=== PATIENT | female | born 1985 | race Caucasian/White ===

== ENCOUNTER 2018-05-07 11:11 | Emergency (ER) | payer OTHER ==
[2018-05-07 11:57] VITALS: BP 124/67; PULSE 83; TEMP 97.7; BMI 30.9
--- NOTE | 2018-05-07 12:47 | PDOC ---
History of Present Illness - General Chief Complaint: Injury Stated Complaint: INJURY/WORK Time Seen by Provider: 05/07/18 12:24 - History of Present Illness Initial Comments: 05/07/18 12:45 33-year-old female with a past medical history significant for lupus, she takes methocarbamol, Plaquenil, and gabapentin presents for evaluation of left elbow and wrist pain. 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 No prior problems with the elbow and wrist Past History - Past Medical History Allergies/Adverse Reactions: Allergies Allergy/AdvReac Type Severity Reaction Status Date / Time strawberry Allergy Severe Rash Verified 05/07/18 11:54 Home Medications: Ambulatory Orders NK [No Known Home Medication] 05/07/18 COPD: No - Immunization History Immunization Up to Date: Yes - Suicide/Smoking/Psychosocial Hx Smoking History: Never smoked Hx Alcohol Use: No Drug/Substance Use Hx: No Review of Systems - Review of Systems Musculoskeletal: Yes: Joint Pain *Physical Exam - Vital Signs Last Vital Signs Temp Pulse Resp BP Pulse Ox 97.7 F 83 18 124/67 99 05/07/18 11:54 05/07/18 11:54 05/07/18 11:54 05/07/18 11:54 05/07/18 11:54 - Physical Exam Comments: 05/07/18 12:46 There is full range of motion of the cervical spine and shoulders. Without discomfort. Left elbow full flexion and extension without discomfort. There is pain with supination at terminal ranges of supination and pronation. Tenderness about the radial head. Mild discomfort about the forearm. Mild swelling about the dorsum of the wrist. Diffuse tenderness about the wrist which is nonspecific and decreased range of motion. No SBT She has no gross sensorimotor deficits. She is neurovascularly intact. 05/07/18 13:17 Moderate Sedation - Procedure Monitoring Vital Signs: Procedure Monitoring Vital Signs Temperature 97.7 F 05/07/18 11:54 Pulse Rate 83 05/07/18 11:54 Respiratory Rate 18 05/07/18 11:54 Blood Pressure 124/67 05/07/18 11:54 O2 Sat by Pulse Oximetry (%) 99 05/07/18 11:54 ED Treatment Course - RADIOLOGY Radiology Studies Ordered: Category Date Time Status ELBOW-LEFT [RAD] Stat Radiology 05/07/18 12:45 Ordered WRIST-LEFT [RAD] Stat Radiology 05/07/18 12:45 Ordered Medical Decision Making - Medical Decision Making 05/07/18 13:20 x-rays elbow qand wrist NAD *DC/Admit/Observation/Transfer Diagnosis at time of Disposition: Wrist sprain - Discharge Dispostion Disposition: HOME Condition at time of disposition: Stable Decision to Admit order: No - Referrals Referrals: Misha Jaramillo MD [Staff Physician] - - Patient Instructions Printed Discharge Instructions: Wrist Sprain, DI for Wrist Sprain Additional Instructions: Please wear the wrist splint as directed he may remove it for hygiene and sleep. Return to the emergency room should symptoms worsen or go unresolved and follow-up with upper extremity surgeon in one to 2 days for further evaluation and treatment options. He may take Tylenol and Motrin for pain as directed. - Post Discharge Activity
[2018-05-07] MEDS ORDERED: ACETAMINOPHEN 500 MG TABLET (FP) PO ONE (13:05)
[2018-05-07] MEDS ORDERED: ACETAMINOPHEN 500 MG TABLET (FP) ONE (13:09)
== END 2018-05-07 13:27 | disposition home or self-care (01) ==
LOC: JERFT 11:11
DX: S63.502A Unspecified sprain of left wrist, initial encounter (principal); X50.0XXA Overexertion from strenuous movement or load, initial encounter; Y93.F2 Activity, caregiving, lifting; Y92.128 Other place in nursing home as the place of occurrence of the external cause; Y99.0 Civilian activity done for income or pay
CPT/HCPCS: 73070-TC-LT-FY; 73110-TC-LR-FY; 99281-25